=== PATIENT | female | born 1960 | race Hispanic/Latino ===

== ENCOUNTER → 2017-08-25 | Outpatient (CLI) | payer BC ==
--- NOTE | 2017-08-25 15:43 | Diagnostic Imaging Report ---
#[id number] - MGDXRT #UNILATERAL RIGHT DIGITAL DIAGNOSTIC MAMMOGRAM WITH SPOT COMPRESSION: 08/25/2017 Comparison is made to exams dated: 07/28/2017 mammogram, 07/12/2016 mammogram and 05/29/2015 mammogram - [facility]. Current study contains 5 films. The tissue of the right breast is heterogeneously dense. This may lower the sensitivity of mammography. Additional imaging reveals a persistent density in the right breast upper aspect on the RMLO view and also a density in the medial aspect on the CC and XCC views. An ultrasound is recommended and will be performed today. In addition an area of stippled calcification is apparent at the 12 o'clock position. In review of studies back to May 2015, these were present but not as prominent. These are likely benign but follow up in 6 months is suggested. No significant masses, calcifications, or other findings are seen in the breast. IMPRESSION: INCOMPLETE: NEEDS ADDITIONAL IMAGING EVALUATION 1. Additional evaluation with ultrasound recommended for the persistent density in the right breast. 2. A six month followup of the calcifications also recommended. 3. Ultrasound will be performed today. Mike Rebolledo Jr., D.O. cw/:08/25/2017 13:09:00 Service Station Equipment Mechanic: Abbey DAMON(Amanda)(Francisco), [facility] letter sent: Additional Imaging Needed Mammogram BI-RADS: 0 Indeterminate
--- NOTE | 2017-08-25 15:43 | Diagnostic Imaging Report ---
#[id number] - USBRECOMRT ULTRASOUND OF THE RIGHT BREAST : 08/25/2017 Comparison is made to exams dated: 08/25/2017 mammogram and 07/28/2017 mammogram - [facility]. Color flow and real-time ultrasound were performed on the right breast with scanning in all four quadrants, retroareolar region and the right axilla. -At the 11:30-12:00 o'clock position of the right breast 2 cm from the nipple there is a benign appearing cyst measuring 9 x 5 x 14 mm. This probably represents the previously described cyst on the prior ultrasound. -No cystic or solid mass is seen in the medial apect of the right breast. IMPRESSION: PROBABLY BENIGN - FOLLOW-UP RECOMMENDED A follow-up mammogram to evaluate the calcfications and an ultrasound in 6 months is recommended to demonstrate stability of this cyst. The patient was notified of the need for followup study. Mike Rebolledo Jr., D.O. cw/:08/25/2017 13:19:41 Field Evidence Technician: GUILLE DAMON, [facility] letter sent: Followup Recommended Ultrasound BI-RADS: 3 Probably benign
== END ==
LOC: MAMMO 09:34
PROVIDERS: ATTEND Obstetrics & Gynecology
DX: N64.59 Other signs and symptoms in breast (principal); R92.2 Inconclusive mammogram
CPT/HCPCS: 76641; G0206

== ENCOUNTER → 2018-07-20 | Outpatient (CLI) | payer BC ==
--- NOTE | 2018-07-30 08:25 | Diagnostic Imaging Report ---
#[id number] - MGSCRBIL #BILATERAL DIGITAL SCREENING MAMMOGRAM WITH CAD: 07/20/2018 CLINICAL: Routine screening. Comparison is made to exams dated: 08/25/2017 ultrasound, 08/25/2017 mammogram and 07/28/2017 mammogram - [facility]. Current study contains 4 films. The tissue of both breasts is heterogeneously dense. This may lower the sensitivity of mammography. Current study was also evaluated with a Computer Aided Detection (CAD) system. There are benign calcifications in both breasts. There also are benign densities in the right breast. No significant masses, calcifications, or other findings are seen in either breast. There has been no significant interval change. IMPRESSION: BENIGN There is no mammographic evidence of malignancy. A 1 year screening mammogram is recommended. The patient will be notified by letter of the results. Mike padgett/piyush:07/29/2018 08:25:58 Sales Representative Printing Paper: Abbey DAMON(R)(M), [facility] letter sent: Compared to Prior B9 Mammogram BI-RADS: 2 Benign
== END ==
LOC: MAMMO 13:45
PROVIDERS: ATTEND Obstetrics & Gynecology
DX: Z12.31 Encounter for screening mammogram for malignant neoplasm of breast (principal)
CPT/HCPCS: 77067

== ENCOUNTER → 2020-06-23 | Outpatient (CLI) | payer BC | LOC: MAMMO 09:58 | PROVIDERS: ATTEND Obstetrics & Gynecology | DX: Z12.31 Encounter for screening mammogram for malignant neoplasm of breast (principal); Z13.820 Encounter for screening for osteoporosis | CPT/HCPCS: 77067; 77080 ==